=== PATIENT | male | born 1975 | race Caucasian/White ===

== ENCOUNTER 2016-12-26 08:19 | Emergency (ER) | payer MEDICAID ==
[2016-12-26 08:33] VITALS: RESP 16; O2SAT 98
[2016-12-26] MEDS ORDERED: PROPARACAINE 0.5% 15 ML OPHT DROP ONE (08:43)
[2016-12-26] MEDS ORDERED: FLUORESCEIN SODIUM 1 MG STRIP OP ONE ×2 (08:43→09:36)
--- NOTE | 2016-12-26 09:21 | EDPHY ---
H & P Stated Complaint: Eyes burning and painful since Tuesday;vision blurred;cannot read eye chart Time Seen by Provider: 12/26/16 08:38 HPI/ROS: Chief complaint: Eye discomfort and visual disturbances History of present illness: This is a 41-year-old male who presents to the emergency department for evaluation of a eye discomfort and visual disturbances. Patient reports the onset of symptoms over the last 2 days. He denies any specific precipitating factors. He denies any alleviating factors. Describes his discomfort as a burning sensation. There is excessive tearing. It is hard to see. He does not wear contacts. He has never had eye surgery. No other associated signs or symptoms: Including no fevers, no cold symptoms, no headache. 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 Eyes: Periorbital tissue is unremarkable. There is clear discharge from the eyes bilaterally. Diffuse injection of both eyes. No subconjunctival hemorrhages. No hyphemas. No hypopyons. PERRLA. EOM intact. Red reflex present. Funduscopic grossly benign. Respiratory: Chest is non tender, lungs are clear to auscultation. Cardiac: regular rate and rhythm Musculoskeletal: Neck is supple and non tender. Extremities have full range of motion and are non tender. Skin: No rashes or lesions. Neurological: Alert and oriented. No meningismus. Constitutional: Initial Vital Signs Temperature (C) 36.4 C 12/26/16 08:23 Heart Rate 68 12/26/16 08:23 Respiratory Rate 16 12/26/16 08:23 Blood Pressure 112/80 12/26/16 08:23 O2 Sat (%) 98 12/26/16 08:23 O2 Delivery Mode Room Air Allergies/Adverse Reactions: No Known Allergies Allergy (Unverified 12/26/16 08:33) Home Medications: Medication Instructions Recorded Aspirin [Aspirin 81mg (*)] 81 mg PO DAILY 12/26/16 Estrogen Injection 12/26/16 Hydrocodone/APAP 5/325 [[place] 1 tab PO Q4 #10 tab 12/26/16 5/325 (*)] Spironolactone [Aldactone 25 MG 25 mg PO DAILY 12/26/16 (*)] Tobramycin/Dexamethasone [Tobradex 1 drop OP QID #1 drops.susp 12/26/16 Eye Drops] Medical Decision Making Procedures: Visual acuity right eye 20/50, left eye 20/40, both eyes 20/40 Slit-lamp examination: The eye was stained with floor seen and examined using cobalt blue and white light. No lesions, foreign bodies or filling defects noted. No Genesis sign. Tonomotry was performed 3 times for each eye, right eye measurements were 8, 10 and 12, left eye was 10, 10 and 10 ED Course/Re-evaluation: Patient discussed with my secondary supervising physician Dr. Kareem Shah. Patient presents to emergency department for eye pain, tearing and blurry vision. He appears to have a severe conjunctivitis. I have consulted with on- call ophthalmology Dr. Mo. He recommends TobraDex and he will see patient in clinic tomorrow. Home care is discussed with the patient. The importance of close follow-up with an eye doctor for recheck is discussed. Strict return precautions are given. Patient voiced understanding and agreement with plan. Differential Diagnosis: Included but not limited to conjunctivitis, iritis, coma, cellulitis - Data Points Medications Given: Discontinued Medications Acetaminophen/Hydrocodone Bitart ([place] 5/325) 2 tab PO EDNOW ONE Stop: 12/26/16 09:36 Last Admin: 12/26/16 09:40 Dose: 2 tab Fluorescein Sodium (Vflre-K-Korhh) 1 mg OP EDNOW ONE Stop: 12/26/16 09:37 Last Admin: 12/26/16 09:40 Dose: 1 mg Proparacaine HCl (Alcaine 0.5%) 1 drops EACHEYE ONCE ONE Stop: 12/26/16 09:37 Last Admin: 12/26/16 09:40 Dose: 1 drop Departure - Departure Disposition: Home, Routine, Self-Care Clinical Impression: Eye pain Qualifiers: Laterality: bilateral Qualifier Code: (H57.13) Ocular pain, bilateral Condition: Good Instructions: Eye Pain (ED) Additional Instructions: Please call the eye doctor tomorrow morning so you can be seen tomorrow for further evaluation and care Placed 1 drop of the medication anterior eye 4 times a day, discuss how long you need to do this with the eye doctor tomorrow If symptoms worsen or new symptoms develop return to the emergency department for recheck Referrals: Jarad Mo MD [Medical Doctor] - As per Instructions Prescriptions: Hydrocodone/APAP 5/325 [[place] 5/325 (*)] 1 tab PO Q4 #10 tab Tobramycin/Dexamethasone [Tobradex Eye Drops] 1 drop OP QID #1 drops.susp
[2016-12-26] MEDS ORDERED: HYDROCODONE/APAP 5/325 TAB PO ONE (09:35)
[2016-12-26] MEDS ORDERED: PROPARACAINE 0.5% 15 ML OPHT DROP EACHEYE ONE (09:36)
[2016-12-26 09:57] VITALS: BP 126/82; PULSE 61; TEMP 97.9
== END 2016-12-26 09:55 | disposition home or self-care (01) ==
LOC: EEVIPCON 08:19
DX: H57.13 Ocular pain, bilateral (principal); Z87.891 Personal history of nicotine dependence; Z79.82 Long term (current) use of aspirin